=== PATIENT | female | born 1990 | race African-American/Black ===

== ENCOUNTER 2017-10-02 13:49 | Emergency (ER) | payer OTHER ==
[~2017-10-02] VITALS: Ht 162.6 cm; Wt 60.0 kg
[2017-10-02 13:53] VITALS: BP 109/67
== END 2017-10-02 17:56 | disposition left against medical advice (07) ==
LOC: ER 14:15
DX: Z53.21 Procedure and treatment not carried out due to patient leaving prior to being seen by health care provider (principal)

== ENCOUNTER 2017-10-02 20:10 | Emergency (ER) | payer MEDICAID, OTHER ==
[~2017-10-02] VITALS: Ht 165.1 cm; Wt 72.7 kg
[2017-10-03 02:50] VITALS: BP 100/60
[2017-10-03] MEDS ORDERED: KETOROLAC 30MG/ML VIAL IM ONE (03:00)
== END 2017-10-03 03:58 | disposition home or self-care (01) ==
LOC: ER 21:34
DX: J02.9 Acute pharyngitis, unspecified (principal); F17.200 Nicotine dependence, unspecified, uncomplicated; Z98.890 Other specified postprocedural states
CPT/HCPCS: 81025; 96372; 99283; J1885

== ENCOUNTER 2018-06-03 03:11 | Emergency (ER) | payer MEDICAID, OTHER ==
[~2018-06-03] VITALS: Ht 167.6 cm; Wt 50.0 kg
[2018-06-03] MEDS ORDERED: KETOROLAC 60MG/2ML VIAL IM STA (06:38)
[2018-06-03 09:30] VITALS: BP 109/67
[2018-06-03] MEDS ORDERED: PENICILLIN G BENZATHINE 1,200,000 UNITS/2ML SYR IM ONE (09:30)
== END 2018-06-03 10:00 | disposition home or self-care (01) ==
LOC: ER 03:11
DX: J02.9 Acute pharyngitis, unspecified (principal)
CPT/HCPCS: 81025; 87070; 87430; 96372; 99283; J0561; J1885